=== PATIENT | female | born 1980 | race African-American/Black ===

== ENCOUNTER 2022-07-19 14:40 | Emergency (ER) | payer SELFPAY ==
[~2022-07-19] VITALS: Ht 170.2 cm; Wt 70.0 kg
[2022-07-19 18:26] LABS: CLARITY URINE CLEAR (CLEAR); COLOR URINE YELLOW (YELLOW); KETONES URINE NEGATIVE (NEGATIVE); LEUKOCYTE ESTERASE URINE NEGATIVE (NEGATIVE); NITRITE URINE NEGATIVE (NEGATIVE); OCCULT BLOOD URINE NEGATIVE (NEGATIVE); PH URINE 5.5 (4.5-8.0); PROTEIN URINE NEGATIVE (NEGATIVE); SPECIFIC GRAVITY URINE 1.012 (1.005-1.030); UROBILINOGEN URINE 0.2 E.U./dL (0.2-1.0)
[2022-07-19 18:38] LABS: *BARBITURATES SCREEN URINE NEGATIVE (NEGATIVE); CANNABINOID URINE SCREEN NEGATIVE (NEGATIVE); METHADONE URINE SCREEN NEGATIVE (NEGATIVE); OPIATES URINE SCREEN NEGATIVE (NEGATIVE)
[2022-07-19 18:43] LABS: *AMPHETAMINES SCREEN URINE PRESUMTIVE POSITIVE (NEGATIVE)
[2022-07-19 18:44] LABS: *BENZODIAZEPINES SCREEN URINE PRESUMTIVE POSITIVE (NEGATIVE); *COCAINE SCREEN URINE PRESUMTIVE POSITIVE (NEGATIVE); PHENCYCLIDINE URINE SCREEN PRESUMTIVE POSITIVE (NEGATIVE)
[2022-07-19 18:44] LABS: CHLORIDE 109 mEq/L (98-107)
[2022-07-19 18:45] LABS: HCG SCREEN NEGATIVE
[2022-07-19 18:48] LABS: BASOPHILS % 0.4 % (0.0-2.0); HEMATOCRIT. 42.1 % (36.0-48.0); HEMOGLOBIN. 12.2 g/dL (12.0-16.0); LYMPHOCYTES % 37.8 % (20.0-50.0); MEAN CORPUSCULAR HEMOGLOBIN 21.1 pg (28.0-32.0); MEAN CORPUSCULAR VOLUME 72.5 fL (81.0-99.0); MEAN PLATELET VOLUME 6.3 fl (7.4-10.4); MONOCYTES % 7.8 % (2.0-8.0); PLATELET 327 x1000/uL (130-400); RED CELL DISTRIBUTION WIDTH 21.2 % (11.6-14.6)
[2022-07-19 18:53] LABS: ETHANOL BLOOD 137 mg/dL
[2022-07-19] MEDS ORDERED: LORAZEPAM 2MG/ML CPJ IM ONE (20:30)
[2022-07-19] MEDS ORDERED: HALOPERIDOL LACTATE 5MG/ML VIAL IM ONE (20:30)
[2022-07-20 06:00] VITALS: BP 129/81
== END 2022-07-20 10:44 | disposition home or self-care (01) ==
LOC: ER 15:22
DX: F29 Unspecified psychosis not due to a substance or known physiological condition (principal); G92.9 Unspecified toxic encephalopathy; Z00.00 Encounter for general adult medical examination without abnormal findings; F14.10 Cocaine abuse, uncomplicated
CPT/HCPCS: 36415; 80053; 80305; 80307; 80320; 80329; 81003; 83690; 84703; 85025; 96372; 99285; J1630; J2060; G0480